=== PATIENT | male | born 1950 | race Caucasian/White ===

== ENCOUNTER 2018-02-23 12:35 | Emergency (ER) | payer MEDICARE ==
[2018-02-23 12:46] VITALS: TEMP 98.3
[2018-02-23 13:48] LABS: HEMATOCRIT 41.3 % (42.0-52.0); HEMOGLOBIN 13.7 g/dl (13.5-18.0); MEAN CELL VOLUME 89 fl (80.0-100.0); MEAN CORPUSCULAR HEMOGLOBIN 30 pg (27.0-31.0); MEAN CORPUSCULAR HGB CONC 33 g/dl (33.0-37.0); MEAN PLATELET VOLUME 9.6 fl (7.4-10.4); PLATELET COUNT 457 K/mm3 (130-400); RED BLOOD COUNT 4.62 M/mm3 (4.20-5.60); REDCELL DISTRIBUTION WIDTH-CV 12.6 % (11.5-14.5)
[2018-02-23] MEDS ORDERED: ROXICODONE 55 MG/TAB PO ×2 (13:49→17:30)
[2018-02-23] MEDS ORDERED: GLUCOPHAGE500 MG/TAB PO (13:50)
[2018-02-23] MEDS ORDERED: LIPITOR 40MG TA40 MG PO (13:50)
[2018-02-23] MEDS ORDERED: PROTONIX 40MG T40 MG PO (13:51)
[2018-02-23 14:03] LABS: ALBUMIN 3.7 gm/dL (3.5-5.0); BILIRUBIN,TOTAL 1.2 mg/dL (0.0-1.0); CALCIUM 9.6 mg/dL (8.4-10.2); CREATININE, serum 0.75 mg/dL (0.66-1.25); POTASSIUM 4.2 mmol/L (3.4-5.0); TOTAL PROTEIN 7.8 gm/dL (6.4-8.2)
[2018-02-23 14:07] LABS: BAND 10 % (0-10); LYMPHOCYTE 3 % (20.0-51.0); NEUTROPHILS 82 % (42.0-75.2)
[2018-02-23 14:08] LABS: PLATELET ESTIMATE INCREASED (NORMAL)
[2018-02-23 14:13] LABS: C-REACTIVE PROTEIN 15.6 mg/dL (0.0-0.9)
[2018-02-23 14:26] LABS: COLLECTION METHOD CLEAN CATCH
[2018-02-23 14:49] LABS: MUCOUS Present /lpf; PH 6 (5-8); SQUAMOUS EPITHELIAL 0-2 /hpf; URINE APPEARANCE Clear; URINE BACTERIA None Seen /hpf; URINE BILIRUBIN Negative (NEGATIVE); URINE BLOOD 1+ (NEGATIVE); URINE COLOR Yellow; URINE GLUCOSE Negative (NEGATIVE); URINE KETONE Negative (NEGATIVE); URINE LEUKOCYTE ESTERASE Negative (NEGATIVE); URINE NITRATE Negative (NEGATIVE); URINE PROTEIN(semi-quant) 2+ (NEGATIVE); URINE UROBILINOGEN >=4.0 mg/dL (NEGATIVE)
[2018-02-23 17:52] VITALS: BP 138/76; PULSE 97
== END 2018-02-23 17:54 | disposition home or self-care (01) ==
LOC: COL.ER 12:35
PROVIDERS: Nurse Practitioner
DX: R10.11 Right upper quadrant pain (principal); Z79.84 Long term (current) use of oral hypoglycemic drugs
CPT/HCPCS: J2270; J2405; J7030; Q9967